=== PATIENT | female | born 1950 | race Caucasian/White ===

== ENCOUNTER 2020-09-15 10:44 | Emergency (ER) | payer MEDICARE, SELFPAY ==
[2020-09-15 10:52] VITALS: BP 131/91; PULSE 92; RESP 16; TEMP 37; O2SAT 98
--- NOTE | 2020-09-15 10:59 | W.ED.GENAD ---
Discharge Plan Disposition Patient Disposition: HOME Condition: Stable Discharge Details Clinical Impression: Knee pain, left, Sciatica Primary Care Provider: Delmi Woods ED Provider: Wilber Dubose Home Meds and New Rx's Prescriptions: New gabapentin 100 mg capsule 100 mg PO TID Qty: 30 RF: 0 Continued levothyroxine 75 mcg Tablet 75 mcg PO DAILY RF: 0 paroxetine HCl [Paxil] 30 mg Tablet 30 mg PO HS RF: 0 cholecalciferol (vitamin D3) 100 mcg (4,000 unit) Capsule 100 mcg PO DAILY RF: 0 Discharge Instructions Instructions: Sciatica (ED), Knee Pain (ED) Additional Instructions: your ultrasound did not show any blood clots and your xrays showed no broken bones continue to take tylenol and naprosyn or ibuprofen for pain, follow dosing instructions on packaging follow up with your primary care provider within 1-2 weeks if you feel more ill, have worsening pain, fevers, or difficulty urinating return to the emergency department Medical Decision Making 69 yo female with prior history of breast cancer who comes in with left knee pain for 3 days. She thinks it started after she was gardening and thinks she may have strained it. No falls or trauma. She has noticed steadily increased swelling to the posterior knee since and pain increasing so came here for an evaluation. She has mild swelling of the posterior knee, no calf tenderness, normal distal sensation and pulses. She does state the pain sometimes travels up the posterior leg to the left lower back. Denies fevers or chills, no difficulty urinating or changes in bowel habits. She has no erythema and can range the knee fully but has pain with bearing weight in the knee. Could be strain vs meniscus injury but will xray the knee and hip as well as lumbar spine to evaluate for fracture given the radiation of the pain. No findings on exam or history to suggest cauda equina, spinal epidural abscess, osteomyelitis or septic joint. 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 She remains stable, has full range ofmotion of the left hip so doubt fracture. No saddle anesthesia and normal sensation distally. Suspect sciatica with the pain travelling down the back of the leg from lower back and also knee sprain from gardening. Will have her f/u with pcp and return precautions given Differential Diagnosis Differential Diagnosis: strain, fracture, sawyer's cyst Imaging Data Radiologic Study: Attestation: I personally reviewed and interpreted this imaging study as follows: Imaging: Ultrasound Radiologist's impression: Exam(s) US LOWER EXTREMITY VENOUS LT EXAM: US LOWER EXTREMITY VENOUS LT CLINICAL HISTORY: leg swelling and pain TECHNIQUE: Left lower extremity venous ultrasound performed using grayscale, color-flow, and spectral Doppler analysis. COMPARISON: No exams were available for comparison FINDINGS: The left common femoral, femoral and popliteal veins demonstrate normal compressibility, augmentation, and color Doppler. The posterior tibial veins are patent. The saphenofemoral junction is unremarkable. There is no evidence of a Sawyer cyst. The soft tissues are unremarkable. IMPRESSION: No DVT. DATA REPOSITORY: [facility] General Mode of arrival: wheelchair. Date/Time Provider Initiated Documentation: 09/15/20 10:46. Limitations to Documentation: no limitations. Information obtained by: patient. History of Present Illness 69 year old F presents to the emergency department with the chief complaint of left knee pain, described as moderate and severe, Quality is described as aching, and is localized to the left and lower extremity. Patient reports no radiation. Patient started experiencing this day(s) (3) and it has been constant. Rest improves symptom(s), Other factors that worsen symptoms (weight bearing) . Patient notes no other symptoms.. Patient did receive the following treatments prior to arrival, none Related Data Home Medications Medication Instructions Recorded Confirmed cholecalciferol (vitamin D3) 100 mcg PO DAILY 09/15/20 09/15/20 gabapentin 100 mg PO TID #30 cap 09/15/20 levothyroxine 75 mcg PO DAILY 09/15/20 09/15/20 paroxetine HCl [Paxil] 30 mg PO HS 09/15/20 09/15/20 Previous Rx's Medication Instructions Recorded gabapentin 100 mg PO TID #30 cap 09/15/20 Allergies Allergy/AdvReac Type Severity Reaction Status Date / Time No Known Allergies Allergy Unverified 09/15/20 10:56 General Stated Complaint: Orthopedic PRACHI: 4 Review of Systems All systems reviewed & are unremarkable except as noted in HPI and below Constitutional Constitutional: Denies chills, Denies fever(s) and Denies weakness Cardiovascular Cardiovascular: Denies chest pain and Denies dyspnea Respiratory Respiratory: Denies cough and Denies dyspnea Gastrointestinal Gastrointestinal: Denies abdominal pain, Denies nausea and Denies vomiting Genitourinary Genitourinary: Denies dysuria Integumentary/Breasts Skin/Breast: Denies rash Neurologic Neurologic: Denies weakness [facility] Medical History (Updated 09/15/20 @ 12:47 by Wilber Dubose MD) Breast cancer Hypothyroidism Surgical History (Updated 09/15/20 @ 11:15 by Velia Purcell) H/O mastectomy Bilateral Social History Smoking/Tobacco Use Status: Never Smoking risk assessment performed?: Yes Alcohol Intake: current Alcohol type: hard liquor Drug use: Daily Substance use type: marijuana Details: at night before bed. Do you feel safe at home: Yes Do you feel safe in your relationship?: Yes Exam Const General: no acute distress Orientation: alert HENMT Head: normal to inspection Ears: external ears normal General nose exam: external nose normal Mouth: moist mucous membranes Eyes General: appearance normal, both eyes and all related structures Neck Neck: normal visual inspection Resp Effort & Inspection: normal respiratory effort and able to speak in complete sentences Cardio Rate: regular rate Skin General skin exam: no rashes or lesions noted Neuro General: patient alert and patient oriented x3 Extrem General: capillary refill normal Psych Mental Status: mental status grossly normal Course Vital Signs Vital signs: Vital Signs Temperature 37.0 C 09/15/20 10:52 Pulse 92 H 09/15/20 10:52 Respiratory Rate 16 09/15/20 10:52 Blood Pressure 131/91 H 09/15/20 10:52 Pulse Oximetry 98 09/15/20 10:52 Temperature 37.0 C 09/15/20 10:52 Temperature Source Temporal Artery Scan 09/15/20 10:52 Pulse 92 H 09/15/20 10:52 Respiratory Rate 16 09/15/20 10:52 Blood Pressure 131/91 H 09/15/20 10:52 Blood Pressure Position Sitting 09/15/20 10:52 Pulse Oximetry 98 09/15/20 10:52 Oxygen Delivery Method Room Air 09/15/20 10:52 Oxygen Flow Rate 0 09/15/20 10:52 Pain Level 10 09/15/20 10:52 Comment 09/15/20 10:52
--- NOTE | 2020-09-15 11:00 | DI.RAD_ITS ---
Exam(s) XR HIP LT COMPLETE AP PELVIS EXAM: XR HIP LT COMPLETE AP PELVIS CLINICAL HISTORY: pain. TECHNIQUE: 2D digital imaging was performed. COMPARISON: No exams were available for comparison FINDINGS: There are stable findings of a right total hip replacement. No acute fracture or dislocation. The s acroiliac joints and symphysis pubis are intact. Surgical clips are seen in the pelvis. The soft ti ssues are unremarkable. IMPRESSION: No acute fracture or dislocation. DATA REPOSITORY: [facility] DOSE DELIVERED:
--- NOTE | 2020-09-15 11:00 | DI.RAD_ITS ---
Exam(s) XR KNEE LT 3V AP,LAT,FELICITA EXAM: XR KNEE LT 3V AP,LAT,FELICITA CLINICAL HISTORY: pain. TECHNIQUE: 2D digital imaging was performed. COMPARISON: CR LUMBAR SPINE AP, LAT from 06/28/2010 FINDINGS: There are mild degenerative changes of the left knee. No acute fracture or dislocation is seen. No significant joint effusion is present. IMPRESSION: No acute fracture or dislocation. DATA REPOSITORY: [facility] DOSE DELIVERED:
--- NOTE | 2020-09-15 11:00 | DI.US_ITS ---
Exam(s) US LOWER EXTREMITY VENOUS LT EXAM: US LOWER EXTREMITY VENOUS LT CLINICAL HISTORY: leg swelling and pain TECHNIQUE: Left lower extremity venous ultrasound performed using grayscale, color-flow, and spectra l Doppler analysis. COMPARISON: No exams were available for comparison FINDINGS: The left common femoral, femoral and popliteal veins demonstrate normal compressibility, augmentation , and color Doppler. The posterior tibial veins are patent. The saphenofemoral junction is unremarka ble. There is no evidence of a Sawyer cyst. The soft tissues are unremarkable. IMPRESSION: No DVT. DATA REPOSITORY:
--- NOTE | 2020-09-15 11:53 | DI.RAD_ITS ---
Exam(s) XR LUMBAR SPINE COMPLETE EXAM: XR LUMBAR SPINE COMPLETE CLINICAL HISTORY: pain. TECHNIQUE: 2D digital imaging was performed. COMPARISON: No exams were available for comparison FINDINGS: There are 5 lumbar type vertebral bodies. There is normal alignment. No spondylolysis or spondyloli sthesis. Moderate degenerative changes are seen in the lumbar spine most marked at the L5-S1 disc sp david. No acute fractures or subluxations. Note is made of a right total hip replacement. Surgical c lips are seen in the pelvis. IMPRESSION: No acute fracture or subluxation in the lumbar spine. DATA REPOSITORY: [facility] DOSE DELIVERED:
== END 2020-09-15 13:13 | disposition home or self-care (01) ==
PROVIDERS: Emergency Provider Emergency Medicine; PCP Internal Medicine
DX: M25.562 Pain in left knee (principal); M54.32 Sciatica, left side; M25.462 Effusion, left knee; M79.605 Pain in left leg
CPT/HCPCS: 73562; 99285; 72110; 73502; 93971; 99283